=== PATIENT | male | born 1980 | race Caucasian/White ===

== ENCOUNTER 2017-04-01 22:24 | Emergency (ER) | payer SELFPAY ==
[2017-04-02] MEDS ORDERED: Acetaminophen TAB* 325 MG PO ONE (00:04)
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
[2017-04-02 01:53] VITALS: BP 135/77
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
== END 2017-04-02 01:52 | disposition home or self-care (01) ==
LOC: ED 22:24
DX: S09.90XA Unspecified injury of head, initial encounter (principal); S09.93XA Unspecified injury of face, initial encounter; Y04.2XXA Assault by strike against or bumped into by another person, initial encounter; Y93.89 Activity, other specified; Y92.89 Other specified places as the place of occurrence of the external cause; Y99.0 Civilian activity done for income or pay; M54.9 Dorsalgia, unspecified
CPT/HCPCS: 70450; 70486; 72125; 72131; 99282; A9270-GY